=== PATIENT | female | born 1955 | race American Indian/Alaskan Native ===

== ENCOUNTER 2017-08-10 10:17 | Outpatient (CLI) | payer OTHER ==
--- NOTE | 2017-08-10 11:18 | Mammography Report ---
BILATERAL MAMMOGRAM: FINDINGS: There are scattered fibroglandular densities (approximately 25%-50% glandular). No mass, distortion, suspicious calcification, or skin change is seen. There is no significant change compared to prior exams dating back to 2015. CAD was utilized. IMPRESSION: Negative mammogram. There is no mammographic evidence of malignancy. RECOMMENDATION: Follow-up per ACS guidelines. BI-RADS CATEGORY: 1 = Negative ACR BI-RADS MAMMOGRAPHIC CODES: 0 = Needs additional imaging evaluation; 1 = Negative; 2 = Benign; 3 = Probably benign; 4 = Suspicious; 5 = Malignant; 6 = Known biopsy-proven malignancy COMMENT: 1. Dense breast tissue, i.e., adenosis, fibrocystic changes, etc., may obscure an underlying neoplasm. 2. Approximately 10% of cancers are not detected with mammography. 3. A negative mammography report should not delay biopsy if a clinically suspicious mass is present. COMMENT: Patient follow-up letters are generated in [employer]
== END 2017-08-10 10:18 | disposition home or self-care (01) ==
LOC: SPVWC 10:17
PROVIDERS: ATTEND Internal Medicine Hematology & Oncology
DX: Z12.31 Encounter for screening mammogram for malignant neoplasm of breast (principal)
CPT/HCPCS: 77067; G0202

== ENCOUNTER 2017-10-18 10:13 | Outpatient (CLI) | payer OTHER ==
--- NOTE | 2017-10-18 11:42 | XRay Report ---
Lateral lumbar spine: Stenosis. Standing lateral flexion, extension, and neutral views are obtained. Comparison is made to prior exam in June 2014. There is a fusion at L5-S1 stabilized with pedicle screws. There is a fixed grade 1-2 anterior L4 subluxation on L5 with seemingly narrowed interspace. No spondylolyses identified. Mild traction spurs are noted anteriorly at the L3-4 level with mild interspace narrowing. The interspace at this level also appears somewhat narrowed. When compared to the prior examination there has been no change at L5-S1. The subluxation at L4-5 however is new as would be the narrowed interspace if in fact present. No significant change at L3-4. Impression: Interval L4-5 subluxation. Stable appearing L3-4 and L5-S1 findings.
== END 2017-10-18 10:14 | disposition home or self-care (01) ==
LOC: SPVIMAG 10:13
DX: M48.061 Spinal stenosis, lumbar region without neurogenic claudication (principal); M99.83 Other biomechanical lesions of lumbar region; M43.26 Fusion of spine, lumbar region
CPT/HCPCS: 72100

== ENCOUNTER 2018-01-09 11:07 | Outpatient (CLI) | payer OTHER ==
--- NOTE | 2018-01-09 14:02 | XRay Report ---
LUMBAR SPINE RADIOGRAPHS INDICATION: Spondylolisthesis. COMPARISON: 10/18/2017. FINDINGS: AP and lateral lumbar spine radiographs demonstrate new posterior bilateral L4-L5 fusion rods and screws as also L4-L5 intervertebral disc maintainer/height yazidism. Similar postsurgical changes at L5-S1 again noted. Mild L3 degenerative spurring. Possible osteopenia. Slight spinal curvature, possibly positional versus scoliosis. Intact SI joints with bilateral predominantly iliac aspect sclerosis. Nonobstructive bowel gas pattern. CONCLUSION: Interval L4-L5 fusion since 10/18/2017 with stable L5-S1 fusion and few other findings, as above. Thank you for the opportunity to participate in this patient's care.
== END 2018-01-09 11:08 | disposition home or self-care (01) ==
LOC: SPVIMAG 11:07
PROVIDERS: ATTEND Neurological Surgery
DX: M43.16 Spondylolisthesis, lumbar region (principal); M43.27 Fusion of spine, lumbosacral region
CPT/HCPCS: 72100

== ENCOUNTER 2018-03-19 11:27 | Outpatient (CLI) | payer OTHER ==
--- NOTE | 2018-03-19 21:11 | XRay Report ---
FINAL REPORT PROCEDURE: XR SPINE LUMBOSACRAL 4+V TECHNIQUE: Lumbar spine radiographs, including AP, lateral, and lumbosacral spot views. CPT 72840 HISTORY: SPONDYLOLISTHESIS COMPARISON: No prior studies are available for comparison. FINDINGS: Alignment: There is mild degree dextroscoliosis. Vertebral body heights/Disk spaces: Vertebral height is within normal limits. Lumbar stabilization hardware is identified from L4-S1 with evidence of laminectomy and prosthetic discs. Alignment is satisfactory.. Fracture(s): None. Facets: Normal. Bone mineralization: Normal. IMPRESSION: No acute abnormality Satisfactory alignment.
== END 2018-03-19 11:28 | disposition home or self-care (01) ==
LOC: SPVIMAG 11:27
PROVIDERS: ATTEND Internal Medicine Hematology & Oncology
DX: M43.16 Spondylolisthesis, lumbar region (principal); M41.87 Other forms of scoliosis, lumbosacral region; M79.662 Pain in left lower leg; M79.89 Other specified soft tissue disorders
CPT/HCPCS: 72110

== ENCOUNTER 2018-04-12 07:53 | Outpatient (CLI) | payer OTHER ==
--- NOTE | 2018-04-12 09:33 | Cat Scan Report ---
CT LUMBAR SPINE WITHOUT CONTRAST: 04/12/18 07:53:00 CLINICAL: Status post lumbar fusion. History of spondylolisthesis. COMPARISON: MRI lumbar spine 08/20/17 TECHNIQUE: Volumetric acquisition and 1.25-mm scan reconstructions without contrast. Sagittal and coronal reformats were performed. FINDINGS: Normal vertebral body alignment. Status post decompression laminectomy and posterior fusion from L4-S1. The left pedicle screw at L5 extends outside of the vertebral body along the left lateral margin of the vertebral body. The rest of the hardware is intact. Disc spacers at L4-5 and L5-S1. No fracture. Mild circumferential disc bulge at L3-4. Previously identified disc protrusions at L4-5 and L5-S1 are no longer present. Neural foramina are widely patent. IMPRESSION: 1. Status post decompression laminectomy with posterior fusion from L4-S1. 2. The left L5 pedicle screw is lateral to the left lateral margin of L5. 3. Mild circumferential disc bulge at L3-4 4. No neural foraminal stenosis and no disc protrusions.
== END 2018-04-12 07:54 | disposition home or self-care (01) ==
LOC: SPVIMAG 07:53
PROVIDERS: ATTEND Neurological Surgery
DX: M51.26 Other intervertebral disc displacement, lumbar region (principal); M43.16 Spondylolisthesis, lumbar region
CPT/HCPCS: 72131

== ENCOUNTER 2019-03-26 09:11 | Outpatient (CLI) | payer OTHER ==
--- NOTE | 2019-03-26 10:45 | XRay Report ---
XRAY RIGHT KNEE 3 THREE VIEWS: 03/26/19 09:11:00 CLINICAL: Right knee pain. FINDINGS: Mild osteopenia. No fracture or dislocation. Mild narrowing of the lateral joint space. The medial joint space is normal. A single moderate-sized lateral osteophyte and a single moderate size medial osteophyte. Small patellofemoral osteophytes. Normal soft tissues. No joint effusion. IMPRESSION: Osteoarthritis of medial, lateral and patellofemoral joints with greatest involvement of the lateral joint.
--- NOTE | 2019-03-26 10:49 | XRay Report ---
XRAY LUMBAR SPINE THREE VIEWS: 03/26/19 09:11:00 CLINICAL: Back pain. COMPARISON: 03/19/18 FINDINGS: Mild lower lumbar dextroscoliosis and status post posterior lumbar fusion L4-S1. Normal appearance of the hardware. Normal there body height and alignment. Stable mild disc space narrowing with anterior osteophytes at L3-4. The pedicles are intact. No fracture. Normal soft tissues. IMPRESSION: Stable lumbar spine status post fusion L4-S1. Stable degenerative disc disease at L3-4.
== END 2019-03-26 09:12 | disposition home or self-care (01) ==
LOC: SPVIMAG 09:11
PROVIDERS: ATTEND Internal Medicine Hematology & Oncology
DX: M51.36 Other intervertebral disc degeneration, lumbar region (principal); M48.07 Spinal stenosis, lumbosacral region; M25.78 Osteophyte, vertebrae; M17.11 Unilateral primary osteoarthritis, right knee
CPT/HCPCS: 72100

== ENCOUNTER 2019-04-07 13:52 | Outpatient (CLI) | payer OTHER ==
--- NOTE | 2019-04-07 14:18 | XRay Report ---
RIGHT THUMB: History: Injury, pain, swelling. The bony architecture is intact. Bony alignment is normal. No soft tissue abnormalities are seen. The joint spaces appear preserved. IMPRESSION: Normal right thumb.
== END 2019-04-07 13:53 | disposition home or self-care (01) ==
LOC: SPVIMAG 13:52
PROVIDERS: ATTEND Internal Medicine Hematology & Oncology
DX: S69.91XA Unspecified injury of right wrist, hand and finger(s), initial encounter (principal); X58.XXXA Exposure to other specified factors, initial encounter; Y93.89 Activity, other specified; Y92.89 Other specified places as the place of occurrence of the external cause; Y99.8 Other external cause status

== ENCOUNTER 2019-08-22 14:59 | Outpatient (CLI) | payer OTHER ==
--- NOTE | 2019-08-28 14:34 | Mammography Report ---
DIGITAL SCREENING MAMMOGRAM WITH CAD, 08/22/2019 INDICATION: Routine screening mammography. TECHNIQUE: Digital bilateral 2D mammography was obtained in the craniocaudal and mediolateral obliq ue projections. This examination was interpreted with the benefit of Computer-Aided Detection analysi s. COMPARISON: 08/12/2018 and 08/10/2017 FINDINGS: Breast Density: The breasts are heterogeneously dense, which may obscure small masses. There is no evidence of dominant mass, suspicious calcifications or architectural distortion in eithe r breast. IMPRESSION: No mammographic evidence of malignancy. Follow up recommendation: Routine yearly BI-RADS Category 2: Benign. A "normal" or negative report should not discourage follow up or biopsy of a clinically significant f inding. A written summary of these findings will be mailed to the patient. The patient will be entered into a mammography reporting system which will generate a reminder letter for the patient's next appointmen t at the appropriate interval. The [employer] recommends yearly mammograms starting at age 40 and continuing as l oleg as a woman is in good health. Breast MRI is recommended for women with an approximate 20-25% or greater lifetime risk of breast cancer, including women with a strong family history of breast or ova krysta cancer or who have been treated for Hodgkin's disease. Signer Name: Juan Ramon Guevara MD Signed: 08/28/2019 2:29 PM Workstation Name: [id number]
--- NOTE | 2019-08-28 15:19 | Mammography Report ---
BONE DEXA CLINICAL: Postmenopausal. COMPARISON: 06/22/2014 TECHNIQUE: 2 site bone DEXA performed on an Hologic scanner. FINDINGS: The average BMD of the left forearm is 0.460g/cm squared with a T score of -2.0 and a Z score of -0.6 . This compares to 0.619g/cm squared on the last exam and represents a -5.6 % change from the [previo us baseline]. The average BMD of the left hip is 0.947 g/cm squared with a T score of 0and a Z score of +1.1. This compares to 0.951 g/cm squared on the last exam and represents a -0.4 % change from the [previous bas sanjuanita]. IMPRESSION: 1. WHO classification: Osteopenia with increased fracture risk based on left forearm measurements. 2. WHO classification Normal with average fracture risk based on left hip measurements. 3. A moderate decline in left forearm BMD but minimal decline in left hip BMD compared to the previou s baseline. RECOMMENDATION: Clinical correlation and routine screening. Definitions: BMD equal bone mineral density T score = BMD related to peak bone mass of young adult (Walker expressed an standard deviation) Z score = age-matched BMD expressed in SD World health organization (WHO) diagnostic criteria Normal T score greater than equal to 1 standard deviation Osteopenia T score between -1 and -2.4 standard deviation Osteoporosis T score -2.5 standard deviation or below. Note: BMD is not the only risk factor for fracture; also consider factors such as the patient's age, risk of falling, previous osteoporotic fracture, family history of osteoporotic fractures, current sm oker and low body weight. Z scores are not calculated if greater than 80 years of age. Signer Name: Juan Ramon Guevara MD Signed: 08/28/2019 3:15 PM Workstation Name: [id number]
== END 2019-08-22 15:00 | disposition home or self-care (01) ==
LOC: SPVWC 14:59
PROVIDERS: ATTEND Internal Medicine Hematology & Oncology
DX: Z12.31 Encounter for screening mammogram for malignant neoplasm of breast (principal); M85.80 Other specified disorders of bone density and structure, unspecified site; Z78.0 Asymptomatic menopausal state
CPT/HCPCS: 77067; 77080

== ENCOUNTER 2020-04-21 13:15 | Outpatient (CLI) | payer OTHER ==
--- NOTE | 2020-04-21 17:24 | Magnetic Resonance Report ---
MRI BRAIN WITHOUT AND WITH CONTRAST INDICATION / CLINICAL INFORMATION: SYNCOPE AND COLLAPSE/ HEADACHE/ OTALGIA. TECHNIQUE: Multiplanar, multisequence MR images of the brain were obtained. Contrast: MultiHance: 12 mL administered intravenously. COMPARISON: None available. FINDINGS: BRAIN / INTRACRANIAL CONTENTS: Ventricles and cortical sulci are normal in size and configuration. Th ere is no mass effect. No evidence of intracranial hemorrhage or extra-axial fluid collection is seen . No significant areas of abnormal brain parenchymal signal intensity are identified. There is no ind ication of remote cortical infarction. Diffusion weighted scans are negative. There is no indication of acute ischemic injury. The brainstem and cerebellum have an unremarkable appearance. MIDLINE STRUCTURES:No abnormalities are seen to involve the pituitary gland. Pineal region has an unr emarkable appearance. CRANIOCERVICAL JUNCTION: No abnormalities are identified at the craniocervical junction. VASCULAR FLOW-VOIDS: Normal flow-voids are present within the major intracranial vessels. ORBITS: Patient is status post bilateral cataract surgery. Orbits have an otherwise unremarkable appe arance. SINUSES / MASTOIDS: There is no indication of inflammatory disease in the paranasal sinuses or mastoi d air cells. Contrast administration: Following administration of intravenous contrast material enhancement of nor mal vascular structures is demonstrated. No areas of abnormal contrast enhancement are identified. IMPRESSION: 1. No significant abnormality on MRI brain without and with intravenous contrast. Signer Name: Camacho Stevens MD Signed: 04/21/2020 5:20 PM Workstation Name: [id number]
--- NOTE | 2020-04-21 17:54 | Magnetic Resonance Report ---
MRA NECK WITH AND WITHOUT CONTRAST HISTORY: COMPARISON: none TECHNIQUE: Routine MRA neck with and without contrast performed. 3-D/MIP reformats were postprocessed and reviewed for this report. Percentage stenosis is determined by direct quantitative measurements of distal internal carotid artery diameter compared with normal reference segments or by criteria si milar to NASCET where applicable. CONTRAST: MultiHance. Contrast volume not provided FINDINGS: MRA NECK: Aortic arch: No significant abnormality. Vertebral arteries: Bilaterally symmetrical vertebral arteries both contribute to the basilar artery origin. Right carotid artery:The right common carotid artery, carotid bifurcation and cervical portions of th e right internal carotid arteries all have an unremarkable appearance. Left carotid artery:Left common carotid artery, left carotid bifurcation and cervical portions of the left internal carotid arteries all have an unremarkable appearance. SUMMARY:The degree of stenosis, if any, is determined utilizing NASCET like criteria. In this case th ere is no indication of hemodynamically significant stenosis at the carotid bifurcation or elsewhere. IMPRESSION: 1. No indication of hemodynamically significant stenosis at the carotid bifurcations or elsewhere. Signer Name: Camacho Stevens MD Signed: 04/21/2020 5:50 PM Workstation Name: [email or web address]
== END 2020-04-21 13:16 | disposition home or self-care (01) ==
LOC: SPVIMAG 13:15
PROVIDERS: ATTEND Internal Medicine Hematology & Oncology
DX: I65.21 Occlusion and stenosis of right carotid artery (principal); R51 Headache; R55 Syncope and collapse; H92.03 Otalgia, bilateral; M79.89 Other specified soft tissue disorders; M54.2 Cervicalgia; R22.1 Localized swelling, mass and lump, neck
CPT/HCPCS: 70549; 70553; A9577

== ENCOUNTER 2020-06-23 14:04 | Outpatient (CLI) | payer OTHER ==
--- NOTE | 2020-06-23 17:19 | Magnetic Resonance Report ---
MRI LUMBAR SPINE 06/23/2020 INDICATION / CLINICAL INFORMATION: LOW BACK PAIN M54.5. COMPARISON: CT lumbar spine 04/12/2018 FINDINGS: GENERAL OBSERVATIONS: Unenhanced and enhanced MR images of the lumbar spine were obtained. Multilevel degenerative and postoperative changes are present. There is been prior fusion and laminectomy at the L4-5 and L5-S1 levels. Degenerative changes are pre sent about these levels. [id number] ANALYSIS: L5-S1: Status post laminectomy and fusion. L4-5: Status post laminectomy and fusion. L3-4: Prominent diffuse disc bulging and facet degenerative changes resulting in severe stenosis of t he central canal. Prominent bilateral foraminal narrowing is present, left greater than right. L2-3: Mild diffuse disc bulging and facet degenerative changes. Mild central canal narrowing with no evidence of lateralization. L1-2: Unremarkable. BONE MARROW: Postoperative and degenerative changes SPINAL CORD/CAUDA EQUINA: Unremarkable PARASPINAL SOFT TISSUES: No significant abnormality. IMPRESSION: Postoperative and degenerative changes. Severe stenosis at L3-4. Signer Name: Calvin Squires MD Signed: 06/23/2020 5:15 PM Workstation Name: [id number]
== END 2020-06-23 14:05 | disposition home or self-care (01) ==
LOC: SPVIMAG 14:04
PROVIDERS: ATTEND Internal Medicine Hematology & Oncology
DX: M48.061 Spinal stenosis, lumbar region without neurogenic claudication (principal); M47.816 Spondylosis without myelopathy or radiculopathy, lumbar region; Z98.890 Other specified postprocedural states
CPT/HCPCS: 72149; A9577

== ENCOUNTER 2020-06-29 12:29 | Outpatient (CLI) | payer OTHER ==
--- NOTE | 2020-06-29 17:01 | Magnetic Resonance Report ---
MRI PELVIS WITHOUT AND WITH CONTRAST INDICATION / CLINICAL INFORMATION: LOW BACK PAIN M54.5, R10.2. TECHNIQUE: Multiplanar, multisequence MR images were obtained. Imaging performed before and after the administra tion of 15 cc of MultiHance IV contrast. COMPARISON: MR lumbar spine 06/23/2020 FINDINGS: BONES: No significant bone marrow edema. No fracture. No osseous lesion. SACROILIAC JOINT(S): No significant abnormality. RIGHT HIP JOINT: Mild degenerative change. LEFT HIP JOINT: Mild degenerative change. GLUTEAL MUSCLES/TENDONS: No significant abnormality. ILIOPSOAS MUSCLES/TENDONS: No significant abnormality. PROXIMAL HAMSTRING TENDONS: Mild tendinosis/peritendinitis. GROIN MUSCLES/TENDONS: No significant abn ormality. SOFT TISSUES: No significant abnormality. LOWER LUMBAR SPINE: Postoperative change of lower lumbar posterior fusion. SOFT TISSUE WITHIN PELVIS: No significant abnormality or abnormal postcontrast enhancement. ADDITIONAL FINDINGS: None. IMPRESSION: 1. Mild tendinosis/peritendinitis at the proximal hamstring tendons. 2. Mild degenerative change. Report dictated by: Stefan Ayala MD Report dictated on: 06/29/2020 3:43 PM I have reviewed the images, agree with this report, and edited this report as needed. Signer Name: Poli Crowe MD Signed: 06/29/2020 4:57 PM Workstation Name: [id number]
== END 2020-06-29 12:30 | disposition home or self-care (01) ==
LOC: SPVIMAG 12:29
PROVIDERS: ATTEND Internal Medicine Hematology & Oncology
DX: M47.816 Spondylosis without myelopathy or radiculopathy, lumbar region (principal); M54.5 Low back pain; R10.2 Pelvic and perineal pain; M25.552 Pain in left hip; M25.551 Pain in right hip; Z98.890 Other specified postprocedural states
CPT/HCPCS: 72196; A9577

== ENCOUNTER 2020-08-24 09:46 | Outpatient (CLI) | payer OTHER ==
--- NOTE | 2020-08-25 07:56 | Mammography Report ---
BILATERAL DIGITAL SCREENING MAMMOGRAM WITH CAD HISTORY: SCREENING MAMMO TECHNIQUE: Routine digital mammographic imaging performed. This examination was interpreted with roz munoz benefit of Computer-aided Detection analysis. COMPARISON: 08/22/2019, 08/09/2016. FINDINGS: Breast Density: scattered fibroglandular appearance of the breast tissue. Digital CC and MLO views demonstrate no mammographic evidence of malignancy. IMPRESSION: No mammographic evidence of malignancy. If the clinical examination remains stable, recommend bilate ral mammogram in approximately one year. BIRADS 1: Negative. FURTHER INFORMATION: According to the [employer], yearly mammograms are recommend ed starting at age 40 and continuing as long as a woman is in good health. Clinical Breast Exams shou ld be part of a periodic health exam-about every 3 years for women in their 20s and 30s and every yea r for women 40 and over. Breast self exam is an option for women starting in their 20s. Any breast ch lydia noted on a breast self exam should be reported promptly to the patient's healthcare provider. Br east MRI is recommended for women with an approximately 20-25% or greater lifetime risk of breast can cer, including women with a strong family history of breast or ovarian cancer and women who have been treated for Hodgkin's disease. A negative Mammography report should not discourage follow up or biopsy of a clinically significant f inding and/or abnormality. Dense breast tissue may obscure small neoplasms. The patient will be entered into a reminder system with a target due date for the next screening mamm ogram. Signer Name: Damián Busch MD Signed: 08/25/2020 7:52 AM Workstation Name: [id number]
== END 2020-08-24 09:47 | disposition home or self-care (01) ==
LOC: SPVWC 09:46
PROVIDERS: ATTEND Internal Medicine Hematology & Oncology
DX: Z12.31 Encounter for screening mammogram for malignant neoplasm of breast (principal); N64.89 Other specified disorders of breast
CPT/HCPCS: 77067

== ENCOUNTER 2020-11-09 10:05 | Outpatient (CLI) | payer OTHER ==
--- NOTE | 2020-11-09 14:22 | Vascular Lab Report ---
DUPLEX DOPPLER UPPER EXTREMITY VENOUS, LEFT INDICATION / CLINICAL INFORMATION: M63.89/ pain. TECHNIQUE: Duplex doppler imaging was performed through the veins of the left upper extremity using venous compr ession and other maneuvers. COMPARISON: None available. FINDINGS: LEFT INTERNAL JUGULAR VEIN: Negative. LEFT SUBCLAVIAN VEIN: Negative. LEFT AXILLARY VEIN: Negative. LEFT BRACHIAL VEIN: Negative. LEFT FOREARM VEINS: Negative. LEFT BASILIC VEIN (SUPERFICIAL): Negative. ADDITIONAL FINDINGS: 3.2 x 2.3 x 1.3 cm isoechoic focus at the subcutaneous soft tissues adjacent to the biceps. Finding demonstrates echogenicity which is similar to the adjacent fat. IMPRESSION: 1. No sonographic evidence for DVT. 2. 3.2 cm focus in the subcutaneous soft tissues adjacent to the biceps likely representing a lipoma. Recommend clinical correlation and consider further evaluation as warranted. Signer Name: Stefan Ayala MD Signed: 11/09/2020 2:17 PM Workstation Name: [id number]
== END 2020-11-09 10:06 | disposition home or self-care (01) ==
LOC: VAS 10:05
PROVIDERS: ATTEND Internal Medicine Hematology & Oncology
DX: M62.89 Other specified disorders of muscle (principal)

== ENCOUNTER 2020-11-18 08:32 | Outpatient (CLI) | payer OTHER ==
--- NOTE | 2020-11-19 12:23 | XRay Report ---
BILATERAL KNEE 6 VIEW(S) INDICATION / CLINICAL INFORMATION: PAIN/ DECREASED RANGE OF MOTION COMPARISON: Right knee radiographs dated 03/26/2019. FINDINGS: BONES / JOINT(S): No acute fracture or subluxation. Mild tricompartmental arthrosis of the right knee most advanced in the lateral tibiofemoral compartment. SOFT TISSUES: Small left-sided suprapatellar joint effusion. Moderate right-sided suprapatellar knee joint effusion. ADDITIONAL FINDINGS: None. Signer Name: Jayson Baxter MD Signed: 11/18/2020 9:24 AM Workstation Name: [id number]
== END 2020-11-18 08:33 | disposition home or self-care (01) ==
LOC: SPVIMAG 08:32
PROVIDERS: ATTEND Internal Medicine Hematology & Oncology
DX: M25.462 Effusion, left knee (principal); M25.461 Effusion, right knee; M17.11 Unilateral primary osteoarthritis, right knee; Z74.09 Other reduced mobility

== ENCOUNTER 2021-02-08 08:40 | Outpatient (CLI) | payer OTHER ==
--- NOTE | 2021-02-08 12:52 | Magnetic Resonance Report ---
MRI RIGHT KNEE WITHOUT CONTRAST INDICATION: RIGHT PAIN KNEE M25.561. COMPARISON: Right knee x-ray 11/18/2020 TECHNIQUE: Multiplanar, multisequence MR images were obtained. FINDINGS: ACL: No significant abnormality. PCL: No significant abnormality. MEDIAL MENISCUS: No significant abnormality. LATERAL MENISCUS: Complex macerated tear lateral meniscus with peripheral extrusion body and anterior junctional zone DISTAL QUADRICEPS TENDON: No significant abnormality. PATELLAR TENDON: No significant abnormality. MCL: No significant abnormality. LCL: No significant abnormality. DISTAL IT BAND: No significant abnormality. POSTEROLATERAL CORNER: No significant abnormality. PATELLOFEMORAL ALIGNMENT: No significant abnormality. ARTICULAR CARTILAGE: Moderately advanced degenerative arthrosis medial femoral tibial compartment wit h moderate size osteophytes and complete chondral attenuation. Moderate chondrosis medial femoral tib ial and patellofemoral compartments JOINT SPACE: Moderate knee effusion. No significant popliteal cyst. No intra-articular bodies. BONES: No significant bone marrow edema. No fracture. No osseous lesion. SUBCUTANEOUS SOFT TISSUES: No significant abnormality. ADDITIONAL FINDINGS: None. IMPRESSION: 1. Complex macerated tear lateral meniscus 2. Moderately advanced tricompartment mild degenerative arthrosis worse within the lateral femoral ti bial compartment Signer Name: Poli Crowe MD Signed: 02/08/2021 12:47 PM Workstation Name: [email or web address]
== END 2021-02-08 08:41 | disposition home or self-care (01) ==
LOC: SPVIMAG 08:40
PROVIDERS: ATTEND Orthopaedic Surgery Sports Medicine
DX: S83.281A Other tear of lateral meniscus, current injury, right knee, initial encounter (principal); M25.461 Effusion, right knee; R26.89 Other abnormalities of gait and mobility; M22.41 Chondromalacia patellae, right knee; M17.11 Unilateral primary osteoarthritis, right knee; X58.XXXA Exposure to other specified factors, initial encounter; Y93.89 Activity, other specified; Y92.89 Other specified places as the place of occurrence of the external cause; Y99.8 Other external cause status
CPT/HCPCS: 73721

== ENCOUNTER 2021-03-22 13:13 | Outpatient (CLI) | payer OTHER ==
--- NOTE | 2021-03-22 17:42 | XRay Report ---
CHEST 2 VIEWS INDICATION: FOR MEDICAL CLEARANCE. COMPARISON: FINDINGS: Support devices: None. Heart: Within normal limits. Lungs: No acute air space or interstitial disease. Pleura: No significant pleural effusion. No pneumothorax. Additional findings: None. IMPRESSION: 1. No acute findings. Signer Name: Otto Cuello MD Signed: 03/22/2021 5:37 PM Workstation Name: [id number]
== END 2021-03-22 13:14 | disposition home or self-care (01) ==
LOC: SPVIMAG 13:13
PROVIDERS: ATTEND Internal Medicine Hematology & Oncology
DX: Z01.818 Encounter for other preprocedural examination (principal)
CPT/HCPCS: 71046

== ENCOUNTER 2021-08-25 09:04 | Outpatient (CLI) | payer OTHER ==
--- NOTE | 2021-08-25 18:03 | Mammography Report ---
DIGITAL SCREENING MAMMOGRAM WITH CAD, 08/25/2021 CLINICAL INFORMATION / INDICATION: Routine screening mammography. TECHNIQUE: Digital bilateral 2D mammography was obtained in the craniocaudal and mediolateral obliqu e projections. This examination was interpreted with the benefit of Computer-Aided Detection analysis . COMPARISON: 08/24/2020, 08/22/2019 FINDINGS: Breast Density: There are scattered areas of fibroglandular density. No dominant mass, suspicious calcifications, or architectural distortion in either breast. Postreduction changes are again noted. There has been no significant interval change. IMPRESSION: No mammographic evidence of malignancy. Follow up recommendation: Routine yearly BI-RADS Category 2: Benign. A "normal" or negative report should not discourage follow up or biopsy of a clinically significant f inding. A written summary of these findings will be mailed to the patient. The patient will be entered into a mammography reporting system which will generate a reminder letter for the patient's next appointmen t at the appropriate interval. The [employer] recommends yearly mammograms starting at age 40 and continuing as l oleg as a woman is in good health. Breast MRI is recommended for women with an approximate 20-25% or greater lifetime risk of breast cancer, including women with a strong family history of breast or ova krysta cancer or who have been treated for Hodgkin's disease. Signer Name: Chito Smith MD Signed: 08/25/2021 5:59 PM Workstation Name: [employer]N
== END 2021-08-25 09:05 | disposition home or self-care (01) ==
LOC: SPVWC 09:04
PROVIDERS: ATTEND Internal Medicine Hematology & Oncology
DX: Z12.31 Encounter for screening mammogram for malignant neoplasm of breast (principal)
CPT/HCPCS: 77067